=== PATIENT | male | born 1970 | race African-American/Black ===

== ENCOUNTER 2021-12-30 11:09 | Emergency (ER) | payer MEDICAID ==
[~2021-12-30] VITALS: Ht 182.9 cm; Wt 81.6 kg
[2021-12-30] MEDS ORDERED: SODIUM CHLORIDE 0.9% 1,000 ML IV ONE ×2 (11:30)
[2021-12-30 11:52] LABS: White Blood Cell 4.4 10^3/uL (4.4-10.8)
[2021-12-30 11:55] LABS: Hematocrit 43.5 % (41.0-53.0); Hemoglobin 14.2 g/dL (13.5-17.5); Mean Corpuscular Hemoglobin 26.7 pg (28.0-32.0); Mean Corpuscular Hgb Conc. 32.6 g/dL (32.0-36.0); Red Blood Cells 5.31 10^6/uL (4.5-5.90); Red Cell Distribution Width 18.1 % (11.8-14.3)
[2021-12-30 12:08] LABS: Band Neutrophils % (manual) 0; Blast Cells 0; Metamyelocytes % 0; Myelocytes % 0; Promyelocytes % 0; Reactive Lymphocytes 0
[2021-12-30 12:26] LABS: Albumin 2.6 g/dL (3.4-5.0); Calcium 8.8 mg/dL (8.5-10.1); Potassium 4.2 mmol/L (3.5-5.1)
[2021-12-30 12:33] LABS: Bilirubin, Total 1.8 mg/dL (0.2-1.0); Total Protein 6.7 g/dL (6.4-8.2)
[2021-12-30 14:08] LABS: Alcohol, Urine < 3.0 mg/dL (0-10); Amphetamine Screen, Urine NEGATIVE (NEGATIVE); Barbiturate Scree,Urine NEGATIVE (NEGATIVE); Benzodiazephine Screen, Urine NEGATIVE (NEGATIVE); Cocaine Screen, Urine NEGATIVE (NEGATIVE); Opiate Scree,Urine NEGATIVE (NEGATIVE); Phencyclidine Screen, Urine POSITIVE (NEGATIVE)
[2021-12-30 14:25] LABS: Basophils % (manual) 1 (0.0-2.0); Eosinophils % (manual) 21 (0-7); Lymphocytes % (manual) 23 (10.0-50.0); Monocytes % (manual) 9 (0-12)
[2021-12-30 15:05] LABS: Cannabinoid Screen, Urine NEGATIVE (NEGATIVE)
[2021-12-30 15:30] LABS: Urine Bacteria FEW /hpf (None Seen); Urine Blood Negative /uL (Negative); Urine Mucus FEW (None Seen); Urine Specific Gravity 1.025 (1.001-1.035); Urine WBC 2 /hpf (0 - 3)
[2021-12-30 16:48] VITALS: BP 149/116
== END 2021-12-30 17:00 | disposition home or self-care (01) ==
LOC: EDBD 11:09 → ER 11:09
DX: G93.41 Metabolic encephalopathy (principal)
CPT/HCPCS: 36415; 70450; 80053; 80307; 81001; 84484; 85007; 85027; 93005; 96360; 96361; 99285; J7030

== ENCOUNTER 2022-01-05 09:12 | Inpatient (IN) | payer MEDICAID ==
[~2022-01-05] VITALS: Ht 170.2 cm; Wt 82.5 kg
[2022-01-05] MEDS ORDERED: SODIUM CHLORIDE 0.9% 500 ML IVB ONE (10:30)
[2022-01-05] MEDS ORDERED: SODIUM CHLORIDE 0.9% 1,000 ML IV ONE (10:30)
[2022-01-05 11:03] LABS: Calcium 8.7 mg/dL (8.5-10.1); Chloride 110 mmol/L (98-107); Potassium 4.4 mmol/L (3.5-5.1); Sodium 139 mmol/L (136-145)
[2022-01-05 11:10] LABS: Alanine Aminotransferase 29 U/L (16-61); Albumin 2.8 g/dL (3.4-5.0); Alkaline Phosphatase 134 U/L (45-117); Anion Gap 4 (5-15); Aspartate Aminotransferase 44 U/L (15-37); BUN/Creatinine Ratio 16.5; Bilirubin, Total 2.3 mg/dL (0.2-1.0); Blood Alcohol < 3.0 mg/dL (0-5); Blood Urea Nitrogen 19 mg/dL (7-18); Carbon Dioxide 25 mmol/L (21-32); GFR African American 86 mL/min; GFR Non-African American 71 mL/min; Glucose 148 mg/dL (74-106); Magnesium 2.3 mg/dL (1.6-2.6); Total Protein 7.5 g/dL (6.4-8.2)
[2022-01-05 11:43] LABS: Hematocrit 48.3 % (41.0-53.0); Hemoglobin 15.2 g/dL (13.5-17.5); Mean Corpuscular Hemoglobin 25.8 pg (28.0-32.0); Mean Corpuscular Hgb Conc. 31.4 g/dL (32.0-36.0); Mean Corpuscular Volume 82.2 fL (80.0-100.0); Red Blood Cells 5.88 10^6/uL (4.5-5.90); Red Cell Distribution Width 18.3 % (11.8-14.3); White Blood Cell 5.4 10^3/uL (4.4-10.8)
[2022-01-05 11:56] LABS: Band Neutrophils % (manual) 0; Basophils % (manual) 0 (0.0-2.0); Blast Cells 0; Metamyelocytes % 0; Myelocytes % 0; Promyelocytes % 0; Reactive Lymphocytes 0
[2022-01-05 12:39] LABS: Eosinophils % (manual) 27 (0-7); Lymphocytes % (manual) 17 (10.0-50.0); Monocytes % (manual) 2 (0-12)
[2022-01-05 13:47] LABS: Urine Bacteria NONE SEEN /hpf (None Seen); Urine Blood Negative /uL (Negative); Urine Specific Gravity 1.019 (1.001-1.035); Urine WBC 1 /hpf (0 - 3)
[2022-01-05 13:49] LABS: Alcohol, Urine < 3.0 mg/dL (0-10); Amphetamine Screen, Urine NEGATIVE (NEGATIVE); Barbiturate Scree,Urine NEGATIVE (NEGATIVE); Benzodiazephine Screen, Urine POSITIVE (NEGATIVE); Cannabinoid Screen, Urine NEGATIVE (NEGATIVE); Cocaine Screen, Urine NEGATIVE (NEGATIVE); Opiate Scree,Urine NEGATIVE (NEGATIVE); Phencyclidine Screen, Urine POSITIVE (NEGATIVE)
[2022-01-05] MEDS ORDERED: LORazepam 2MG/ML-1ML VIAL ONE (15:29)
[2022-01-05] MEDS ORDERED: LORazepam 2MG/ML-1ML VIAL IV ONE (15:30)
[2022-01-05] MEDS ORDERED: SPIRONOLACTONE 25 MG TAB PO ONE (15:30)
[2022-01-05] MEDS ORDERED: FUROSEMIDE 40 MG/4 ML VIAL IV ONE (15:30)
[2022-01-05] MEDS ORDERED: hydrALAZINE HCL 20 MG/ML VL IV PRN (16:45)
[2022-01-05] MEDS ORDERED: LORazepam 0.5 MG TAB PO PRN (16:45)
[2022-01-05] MEDS: amLODIPine BESYLATE 5 MG TAB PO SCH (16:45)
[2022-01-05] MEDS ORDERED: HALOPERIDOL LACTATE 5 MG/ML INJ VIAL IM PRN (21:45)
[2022-01-06] VITALS (7 sets, daily range): BP systolic 101–145; BP diastolic 87–123
[2022-01-06] MEDS: amLODIPine BESYLATE 5 MG TAB PO SCH (09:45)
[2022-01-07 05:00] VITALS: BP 127/87
[2022-01-07] MEDS ORDERED: LORazepam 0.5 MG TAB PO ONE (06:00)
[2022-01-07] MEDS ORDERED: risperiDONE 1 MG TAB PO ONE (06:00)
[2022-01-07] MEDS ORDERED: risperiDONE 1 MG TAB PO SCH (10:00)
== END 2022-01-07 08:03 | disposition left against medical advice (07) | DRG 52 ==
LOC: ER 09:12 → EDBD 09:12 → TELE 16:44 → TELE-CENTR 23:52
PROVIDERS: ADMIT Internal Medicine; ATTEND Internal Medicine
DX: G92.8 Other toxic encephalopathy (principal); I42.9 Cardiomyopathy, unspecified; E44.0 Moderate protein-calorie malnutrition; R17 Unspecified jaundice; I50.9 Heart failure, unspecified; I11.0 Hypertensive heart disease with heart failure; Z20.822 Contact with and (suspected) exposure to COVID-19; F16.10 Hallucinogen abuse, uncomplicated; Z91.14 Patient's other noncompliance with medication regimen; Z68.28 Body mass index [BMI] 28.0-28.9, adult
CPT/HCPCS: 36415; 70450; 71045; 80053; 80307; 80320; 81001; 83735; 84443; 84484; 85007; 85027; 93005; 95819; 96361; 96374; 96375; G0378

== ENCOUNTER 2022-09-11 09:26 | Inpatient (IN) | payer MEDICAID ==
[~2022-09-11] VITALS: Ht 182.9 cm; Wt 87.3 kg
[2022-09-11] MEDS ORDERED: NALOXONE HCL 0.4 MG/ML VIAL IV ONE ×3 (10:00→12:00)
[2022-09-11] MEDS ORDERED: FUROSEMIDE 20 MG/2 ML VIAL IV ONE (10:00)
[2022-09-11 10:02] LABS: Basophils # (auto) 0 10 ^3/uL (0-0.2); Eosinophils # (auto) 0.8 10 ^3/uL (0-0.8); Neutrophils # (auto) 3.5 10 ^3/uL (1.6-8.6); White Blood Cell 6.1 10^3/uL (4.4-10.8)
[2022-09-11 10:04] LABS: Basophils % (auto) 0.1 % (0.0-2.0); Eosinophils % (auto) 12.6 % (0.0-7.0); Hematocrit 51.5 % (41.0-53.0); Hemoglobin 16.1 g/dL (13.5-17.5); Lymphocytes % (auto) 16.9 % (10.0-50.0); Mean Corpuscular Hemoglobin 25.9 pg (28.0-32.0); Mean Corpuscular Hgb Conc. 31.2 g/dL (32.0-36.0); Monocytes # (auto) 0.8 10 ^3/uL (0-1.3); Monocytes % (auto) 12.6 % (0.0-12.0); Neutrophils % (auto) 57.8 % (37.0-80.0); Nucleated Red Blood Cells % 0.3 %; Red Blood Cells 6.21 10^6/uL (4.5-5.90)
[2022-09-11 10:38] LABS: Albumin 3.1 g/dL (3.4-5.0); Anion Gap 12 (5-15); Blood Alcohol < 3.0 mg/dL (0-5); Blood Urea Nitrogen 25 mg/dL (7-18); Calcium 9.3 mg/dL (8.5-10.1); Carbon Dioxide 21 mmol/L (21-32); Chloride 111 mmol/L (98-107); Magnesium 2.3 mg/dL (1.6-2.6); Potassium 5.4 mmol/L (3.5-5.1); Sodium 144 mmol/L (136-145)
[2022-09-11 10:41] LABS: Alanine Aminotransferase 23 U/L (16-61); Alkaline Phosphatase 166 U/L (45-117); Aspartate Aminotransferase 48 U/L (15-37); BUN/Creatinine Ratio 18.2; Bilirubin, Total 5.4 mg/dL (0.2-1.0); GFR African American 70 mL/min; GFR Non-African American 58 mL/min; Total Protein 8.1 g/dL (6.4-8.2)
[2022-09-11 10:48] LABS: Glucose 45 mg/dL (74-106)
[2022-09-11] MEDS: DEXTROSE 50% SYRINGE 50 ML IV ONE (10:54)
[2022-09-11] MEDS ORDERED: VANCOMYCIN 1GM/250ML 250 ML IV ONE (11:00)
[2022-09-11] MEDS ORDERED: cefEPIME 1gm INJ VIAL IM ONE (11:00)
[2022-09-11] MEDS ORDERED: DEXTROSE (50%) 50ML SYRG IV ONE ×3 (11:00→22:15)
[2022-09-11] MEDS ORDERED: CALCIUM GLUC 1,000mg/50ml-NS 50 ML IV ONE (11:00)
[2022-09-11] MEDS ORDERED: D5W/SOD CHL 0.45% 1,000 ML IV ONE (11:00)
[2022-09-11] MEDS ORDERED: DEXTROSE 50% SYRINGE 50 ML IV ONE (11:08)
[2022-09-11] MEDS ORDERED: CEFEPIME 1GM/ 50ML 50 ML IV ONE (11:30)
[2022-09-11 11:31] LABS: Urine Bacteria NONE SEEN /hpf (None Seen); Urine Blood Negative /uL (Negative); Urine Hyaline Cast FEW /lpf (0 - 2); Urine Mucus FEW (None Seen); Urine Specific Gravity 1.015 (1.001-1.035); Urine WBC 1 /hpf (0 - 3)
[2022-09-11 11:48] LABS: Alcohol, Urine < 3.0 mg/dL (0-10); Amphetamine Screen, Urine NEGATIVE (NEGATIVE); Barbiturate Scree,Urine NEGATIVE (NEGATIVE); Benzodiazephine Screen, Urine NEGATIVE (NEGATIVE); Cannabinoid Screen, Urine NEGATIVE (NEGATIVE); Cocaine Screen, Urine NEGATIVE (NEGATIVE); Opiate Scree,Urine POSITIVE (NEGATIVE); Phencyclidine Screen, Urine POSITIVE (NEGATIVE)
[2022-09-11] MEDS ORDERED: ALBUTEROL SULF 2.5 MG/0.5ML(0.5%) NEB SOLN NEB ONE (13:15)
[2022-09-11] MEDS ORDERED: IPRATROPIUM BROM 0.5 MG/2.5ML INH SOL NEB ONE (13:15)
[2022-09-11] MEDS: SODIUM ZIRCONIUM CYCL 10 GM PAK PO ONE ×2 (14:00→14:25)
[2022-09-11] MEDS ORDERED: ONDANSETRON HCL 4 MG/2 ML VIAL IV PRN (17:15)
[2022-09-11 18:16] VITALS: BP 116/92
[2022-09-11 19:06] LABS: BUN/Creatinine Ratio 20.3; Calcium 9.1 mg/dL (8.5-10.1); Potassium 4.8 mmol/L (3.5-5.1)
[2022-09-11] MEDS: FUROSEMIDE 40 MG/4 ML VIAL IV SCH (22:28)
[2022-09-11] MEDS: LACTULOSE 10g/15ml SOLN 473ML PR SCH (22:29)
[2022-09-12 01:23] LABS: Calcium 9.2 mg/dL (8.5-10.1); Potassium 4.3 mmol/L (3.5-5.1)
[2022-09-12] MEDS: LACTULOSE 10g/15ml SOLN 473ML PR SCH ×2 (06:00)
[2022-09-12 06:51] LABS: Eosinophils # (auto) 0.7 10 ^3/uL (0-0.8); Hemoglobin 14.7 g/dL (13.5-17.5); Monocytes # (auto) 0.7 10 ^3/uL (0-1.3); Red Cell Distribution Width 17.6 % (11.8-14.3)
[2022-09-12 06:53] LABS: Basophils # (auto) 0.1 10 ^3/uL (0-0.2); Basophils % (auto) 1.5 % (0.0-2.0); Eosinophils % (auto) 13.9 % (0.0-7.0); Hematocrit 47.5 % (41.0-53.0); Lymphocytes # (auto) 0.8 10 ^3/uL (0.4-5.4); Lymphocytes % (auto) 15.3 % (10.0-50.0); Mean Corpuscular Hemoglobin 25.7 pg (28.0-32.0); Mean Corpuscular Volume 82.9 fL (80.0-100.0); Monocytes % (auto) 14.3 % (0.0-12.0); Neutrophils # (auto) 2.7 10 ^3/uL (1.6-8.6); Nucleated Red Blood Cells % 0.2 %; Red Blood Cells 5.73 10^6/uL (4.5-5.90); White Blood Cell 4.9 10^3/uL (4.4-10.8)
[2022-09-12 07:46] LABS: BUN/Creatinine Ratio 19.5; Calcium 9.2 mg/dL (8.5-10.1); Potassium 4.6 mmol/L (3.5-5.1)
[2022-09-12 08:00] VITALS: BP 132/89
[2022-09-12 09:12] VITALS: BP 136/104
[2022-09-12] MEDS: FUROSEMIDE 40 MG/4 ML VIAL IV SCH ×2 (10:37→21:32)
[2022-09-12] MEDS ORDERED: LACTULOSE 20Gm/30ML SOLN PO PRN (11:15)
[2022-09-12 12:00] VITALS: BP 144/102
[2022-09-12 12:49] LABS: BUN/Creatinine Ratio 19.9; Calcium 9.2 mg/dL (8.5-10.1); Potassium 4.3 mmol/L (3.5-5.1)
[2022-09-12 15:36] LABS: Albumin 2.6 g/dL (3.4-5.0); Calcium 9.1 mg/dL (8.5-10.1); Potassium 4.2 mmol/L (3.5-5.1)
[2022-09-12 15:42] LABS: BUN/Creatinine Ratio 19.3; Bilirubin, Total 4.4 mg/dL (0.2-1.0); Total Protein 7.4 g/dL (6.4-8.2)
[2022-09-12 16:00] VITALS: BP 140/92
[2022-09-12] MEDS ORDERED: LORazepam 2MG/ML-1ML VIAL IV PRN (17:30)
[2022-09-12 21:30] VITALS: BP 130/88
[2022-09-13] VITALS (9 sets, daily range): BP systolic 106–145; BP diastolic 70–109
[2022-09-13] MEDS ORDERED: D5W/SOD CHL 0.45% 1,000 ML IV ONE (10:30)
[2022-09-13] MEDS ORDERED: LACTULOSE 10g/15ml SOLN 473ML PR SCH (10:30)
[2022-09-13] MEDS: FUROSEMIDE 40 MG/4 ML VIAL IV SCH (10:40)
[2022-09-13 11:00] LABS: Basophils # (auto) 0.1 10 ^3/uL (0-0.2); Basophils % (auto) 1.1 % (0.0-2.0); Lymphocytes # (auto) 0.6 10 ^3/uL (0.4-5.4); Monocytes # (auto) 0.8 10 ^3/uL (0-1.3); Monocytes % (auto) 14.3 % (0.0-12.0); Neutrophils # (auto) 3.3 10 ^3/uL (1.6-8.6)
[2022-09-13] MEDS: POTASSIUM CHL 20 Meq TABLET PO SCH ×2 (11:00→13:24)
[2022-09-13 11:02] LABS: Eosinophils # (auto) 0.8 10 ^3/uL (0-0.8); Eosinophils % (auto) 14.4 % (0.0-7.0); Hematocrit 45.5 % (41.0-53.0); Hemoglobin 14.9 g/dL (13.5-17.5); Lymphocytes % (auto) 11.2 % (10.0-50.0); Mean Corpuscular Hemoglobin 26.7 pg (28.0-32.0); Mean Corpuscular Hgb Conc. 32.8 g/dL (32.0-36.0); Mean Corpuscular Volume 81.3 fL (80.0-100.0); Nucleated Red Blood Cells % 0.2 %; Red Cell Distribution Width 16.9 % (11.8-14.3); White Blood Cell 5.6 10^3/uL (4.4-10.8)
[2022-09-13 11:16] LABS: Albumin 2.6 g/dL (3.4-5.0); BUN/Creatinine Ratio 19.3; Bilirubin, Total 3.4 mg/dL (0.2-1.0); Calcium 9.3 mg/dL (8.5-10.1); Potassium 4.1 mmol/L (3.5-5.1); Total Protein 7.4 g/dL (6.4-8.2)
[2022-09-13] MEDS: ENOXAPARIN SOD 40 MG/0.4 ML SYRINGE SC SCH (13:17)
[2022-09-14 04:40] LABS: Potassium 3.6 mmol/L (3.5-5.1)
[2022-09-14 04:47] LABS: Albumin 2.3 g/dL (3.4-5.0); Calcium 8.4 mg/dL (8.5-10.1); Total Protein 6.7 g/dL (6.4-8.2)
[2022-09-14 05:00] VITALS: BP 145/92
[2022-09-14 09:00] VITALS: BP 132/94
[2022-09-14] MEDS: POTASSIUM CHL 20 Meq TABLET PO SCH (09:03)
[2022-09-14] MEDS: ENOXAPARIN SOD 40 MG/0.4 ML SYRINGE SC SCH (09:04)
[2022-09-14] MEDS ORDERED: FUROSEMIDE 20 MG TAB PO SCH (10:00)
[2022-09-14 13:00] VITALS: BP 148/71
[2022-09-14] MEDS ORDERED: POTA10TA32 PO (15:06)
[2022-09-14] MEDS ORDERED: FUR20T PO (15:06)
[2022-09-14 16:08] VITALS: BP_SYST 132; BP_SYST 135; BP_DIAS 94
[2022-09-14 16:48] VITALS: BP 148/99
== END 2022-09-14 19:45 | disposition home or self-care (01) | DRG 133 ==
LOC: EDBD 09:26 → ER 09:26 → EDUNIT# 09:26 → TELE 17:25 → DOU IN ICU 09-12 06:17 → TELE-WESTW 09-13 11:18
PROVIDERS: ADMIT Internal Medicine; ATTEND Internal Medicine
PROC: 5A09357 Assistance with Respiratory Ventilation, Less than 24 Consecutive Hours, Continuous Positive Airway Pressure (ICD-10-PCS; principal; 2022-09-11)
DX: J96.01 Acute respiratory failure with hypoxia (principal); G92.8 Other toxic encephalopathy; N17.9 Acute kidney failure, unspecified; I13.0 Hypertensive heart and chronic kidney disease with heart failure and stage 1 through stage 4 chronic kidney disease, or unspecified chronic kidney disease; J90 Pleural effusion, not elsewhere classified; I50.9 Heart failure, unspecified; R18.8 Other ascites; E87.5 Hyperkalemia; F11.10 Opioid abuse, uncomplicated; E16.2 Hypoglycemia, unspecified; F16.10 Hallucinogen abuse, uncomplicated; J98.11 Atelectasis; K76.9 Liver disease, unspecified; N18.9 Chronic kidney disease, unspecified; F17.210 Nicotine dependence, cigarettes, uncomplicated; E78.5 Hyperlipidemia, unspecified; Z20.822 Contact with and (suspected) exposure to COVID-19; F19.10 Other psychoactive substance abuse, uncomplicated; Z71.51 Drug abuse counseling and surveillance of drug abuser; Z91.199 Patient's noncompliance with other medical treatment and regimen due to unspecified reason
CPT/HCPCS: 36415; 36600; 70450; 71045; 71275; 80048; 80053; 80307; 80320; 81001; 82140; 82550; 82805; 82962; 83735; 83880; 84484; 85025; 87081; 87426; 93005; 93306; 94640; 94660; 95819; 96365; 96366; 96368; 96375; 96376; 99291; G0378